=== PATIENT | male | born 2000 | race African-American/Black ===

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

== ENCOUNTER 2020-01-19 15:13 | Emergency (ER) | payer MEDICAID ==
[~2020-01-19] VITALS: Ht 175.3 cm; Wt 62.0 kg
[2020-01-19] MEDS ORDERED: CEFTRIAXONE SODIUM 250 MG/VIAL IM ONE (15:45)
[2020-01-19] MEDS ORDERED: LIDOCAINE HCL 1% 20ML VIAL (Pyxis) INJ INFIL ONE (15:45)
[2020-01-19] MEDS ORDERED: AZITHROMYCIN 500 MG TABLET PO ONE (15:45)
[2020-01-19 17:03] VITALS: BP 117/74
[2020-01-22 04:10] LABS: NEISSERIA GONORRHOEAE NAA Negative (Negative)
== END 2020-01-19 17:04 | disposition home or self-care (01) ==
LOC: ER 15:13
DX: Z11.3 Encounter for screening for infections with a predominantly sexual mode of transmission (principal); R36.9 Urethral discharge, unspecified; J45.909 Unspecified asthma, uncomplicated
CPT/HCPCS: 87491; 87591; 96372; 99283; J0696; J3490

== ENCOUNTER 2020-07-13 17:53 | Emergency (ER) | payer MEDICAID ==
[~2020-07-13] VITALS: Ht 175.3 cm; Wt 65.0 kg
[2020-07-13 17:55] VITALS: BP 140/64
[2020-07-13] MEDS ORDERED: FAMOTIDINE 20MG TABLET PO ONE (18:15)
[2020-07-13] MEDS ORDERED: DIPHENHYDRAMINE 25MG CAPSULE PO ONE (18:15)
[2020-07-13] MEDS ORDERED: PREDNISONE 20MG TABLET PO ONE (18:15)
== END 2020-07-13 19:16 | disposition home or self-care (01) ==
LOC: ER 17:53
DX: T78.40XA Allergy, unspecified, initial encounter (principal); X58.XXXA Exposure to other specified factors, initial encounter; R03.0 Elevated blood-pressure reading, without diagnosis of hypertension; F12.90 Cannabis use, unspecified, uncomplicated
CPT/HCPCS: 99284; J7512; Q0163

== ENCOUNTER 2023-01-23 21:46 | Emergency (ER) | payer BC, MEDICAID ==
[~2023-01-23] VITALS: Ht 175.3 cm; Wt 64.0 kg
[2023-01-23 21:52] VITALS: BP 113/70
[2023-01-23] MEDS ORDERED: CEFTRIAXONE SODIUM 500 MG/VIAL IM ONE (22:30)
[2023-01-23] MEDS ORDERED: AZITHROMYCIN 500 MG TABLET PO ONE (22:30)
[2023-01-23 22:34] LABS: CLARITY URINE CLEAR (CLEAR); COLOR URINE YELLOW (YELLOW); KETONES URINE NEGATIVE (NEGATIVE); LEUKOCYTE ESTERASE URINE NEGATIVE (NEGATIVE); NITRITE URINE NEGATIVE (NEGATIVE); OCCULT BLOOD URINE NEGATIVE (NEGATIVE); PH URINE 7.5 (4.5-8.0); PROTEIN URINE NEGATIVE (NEGATIVE); SPECIFIC GRAVITY URINE 1.011 (1.005-1.030)
== END 2023-01-24 00:10 | disposition home or self-care (01) ==
LOC: ER 21:46
DX: R30.0 Dysuria (principal); F12.10 Cannabis abuse, uncomplicated; J45.909 Unspecified asthma, uncomplicated; Z91.010 Allergy to peanuts
CPT/HCPCS: 81003; 96372; 99283; J0696; Z7610